=== PATIENT | female | born 1970 | race Caucasian/White ===

== ENCOUNTER 2016-05-27 15:16 | Emergency (ER) | payer OTHER ==
[~2016-05-27] VITALS: Ht 154.9 cm; Wt 61.2 kg
[~2016-05-27 15:16] MED LIST: ATORVASTATIN CA20 MG PO; PERCOCET 325 MG-5 MG PO; PERCOCET 325 MG1 TA2 PO; PERCOCET 325 MG1 TAB PO
--- NOTE | 2016-05-27 16:12 | RADIOLOGY REPORT ---
EXAMINATION: XR HAND, LEFT CLINICAL INFORMATION: Left hand injury. COMPARISON: None. TECHNIQUE: AP, lateral, and oblique views of the left hand. FINDINGS: No acute fracture or dislocation of the left hand. Joint spaces appear grossly preserved. Soft tissues appear unremarkable. Carpal alignment appears grossly maintained. IMPRESSION: No acute fracture or dislocation of the left hand.
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
[2016-05-27] MEDS ORDERED: IBUPROFEN800 M1 PO (17:21)
[2016-05-27] MEDS ORDERED: VICODIN 5-3001 EACH PO (17:21)
[2016-05-27 17:26] VITALS: BP 149/78
== END 2016-05-27 17:31 ==
LOC: ERH 15:16
DX: S63.255A Unspecified dislocation of left ring finger, initial encounter (principal); W23.0XXA Caught, crushed, jammed, or pinched between moving objects, initial encounter
CPT/HCPCS: 73130-LT